=== PATIENT | female | born 1990 | race Caucasian/White ===

== ENCOUNTER 2017-10-03 19:46 | Emergency (ER) | payer MEDICAID ==
[2017-10-03 20:45] VITALS: BP 120/84
[2017-10-03] MEDS ORDERED: Ketorolac 60 MG/2 ML SDV IM ONE (20:56)
--- NOTE | 2017-10-03 21:10 | EDM.PDOC ---
ED HPI GENERAL MEDICAL PROBLEM - General Chief Complaint: Lower Extremity Injury/Pain Stated Complaint: LEFT ANKLE INJURY Time Seen by Provider: 10/03/17 20:40 Source of Information: Reports: Patient, Family (Cousin here with Екатерина) History Limitations: Reports: No Limitations - History of Present Illness INITIAL COMMENTS - FREE TEXT/NARRATIVE: Left ankle pain; this is a 27-year-old female presents emergency room with her cousin, they were playing a softball game this evening and at 6:30 PM she was running to first base stepped off the base and rolled her ankle. Unable to bear weight had to be carried off the field she rested but continues to have acute pain with any weightbearing. She is also tender to the lateral ankle. Denies Onset: Today Onset Date: 10/03/17 Onset Time: 18:30 Duration: Hour(s):, Constant Location: Reports: Lower Extremity, Left (Left ankle) Quality: Reports: Pressure, Sharp Severity: Moderate Improves with: Reports: Immobilization Worsens with: Reports: Movement Context: Reports: Other (Sports injury) Associated Symptoms: Reports: No Other Symptoms - Related Data Allergies Allergy/AdvReac Type Severity Reaction Status Date / Time No Known Allergies Allergy Verified 10/03/17 20:28 Home Meds: Home Meds Citalopram Hydrobromide [Celexa] 10/03/17 [History] Norgestimate-Ethinyl Estradiol [Ortho Tri-Cyclen 28 Tablet] 10/03/17 [History] Past Medical History - Past Health History Medical/Surgical History: Denies Medical/Surgical History Social & Family History - Tobacco Use Smoking Status *Q: Never Smoker - Living Situation & Occupation Occupation: Employed (Employed as a [employer], and [employer]. Lives with her 2 children.) Review of Systems - Review of Systems Review Of Systems: See Below Constitutional: Reports: Other (Painful left ankle) Musculoskeletal: Reports: Leg Pain (Left ankle), Joint Pain (Left ankle) Skin: Reports: No Symptoms Neurological: Reports: No Symptoms Psychiatric: Reports: No Symptoms ED EXAM, GENERAL - Physical Exam Exam: See Below Exam Limited By: No Limitations General Appearance: Alert, WD/WN, Mild Distress, Obese Eye Exam: Bilateral Eye: Normal Inspection Ears: Normal External Exam Nose: Normal Inspection Throat/Mouth: Normal Inspection Head: Atraumatic, Normocephalic Neck: Normal Inspection, Supple Respiratory/Chest: No Respiratory Distress Cardiovascular: Regular Rate, Rhythm Extremities: Leg Pain (Left left ankle with point tenderness to the lateral malleolus and heel. Patient is unable to bear weight on the left leg.) Neurological: Alert, Oriented, Normal Cognition Psychiatric: Normal Affect, Normal Mood, Tearful Skin Exam: Warm, Dry, Intact, Normal Color, No Rash Lymphatic: No Adenopathy Course - Vital Signs Last Recorded V/S: Last Vital Signs Temp 36.9 C 10/03/17 20:35 Pulse 80 10/03/17 20:35 Resp 14 10/03/17 20:35 BP 120/84 10/03/17 20:35 Pulse Ox 96 10/03/17 20:35 - Orders/Labs/Meds Orders: Active Orders 24 hr Category Date Time Status Ankle Min 3V Lt [CR] Stat Exams 10/03/17 20:40 Ordered DME for Discharge [COMM] Urgent Oth 10/03/17 20:59 Ordered Meds: Medications Discontinued Medications Generic Name Dose Route Start Last Admin Trade Name Lina PRN Reason Stop Dose Admin Ketorolac Tromethamine 60 mg 10/03/17 20:56 Toradol IM 10/03/17 20:57 ONETIME ONE - Radiology Interpretation Free Text/Narrative:: Left ankle x-ray is suspicious for a hairline fracture to the distal fibula. No other acute bony injury is noted. Will await radiology report. Given Toradol 60 mg IM for pain control, will plan to discharge to home with crutches, walking boot, and medications for pain control. Екатерина and her cousin agree with plan of care. Departure - Departure Time of Disposition: 21:10 Disposition: Home, Self-Care 01 Condition: Good Clinical Impression: Fracture of fibula - Discharge Information Instructions: Cast or Splint Care, Adult, [id number], Crutch Use, Adult, Easy -to-Read, Fibular Ankle Fracture Treated With or Without Immobilization, Adult Referrals: Swetha Devine CNM [Primary Care Provider] - Care Plan Goals: Left ankle sprain. Distal fibula fracture versus sprain -Rest, [id number] -Use crutches until cleared by primary care or orthopedics -walking boot for comfort and until cleared by primary care orthopedics -Percocet 5/325 one every 4-6 hours when necessary pain #10 -May use [id number] Motrin/ibuprofen 600 mg every 6-8 hours when necessary pain -Advised to call ER tomorrow for radiology report -If positive for fracture will need to follow-up with orthopedics -If negative for fracture will need to follow-up with primary care in 5-7 days Return to emergency room for increased pain, fever, chills, nausea, vomiting, rash or not improved - Problem List & Annotations (1) Fracture of fibula SNOMED Code(s): 70118822 Code(s): S82.409A - UNSP FRACTURE OF SHAFT OF UNSP FIBULA, INIT FOR CLOS FX Status: Acute Priority: High Current Visit: Yes (2) Left ankle sprain SNOMED Code(s): 50646555, 65911782955207789 Code(s): S93.402A - SPRAIN OF UNSPECIFIED LIGAMENT OF LEFT ANKLE, INIT ENCNTR Status: Acute Current Visit: Yes Qualifiers: Encounter type: initial encounter - Problem List Review Problem List Initiated/Reviewed/Updated: Yes - My Orders Last 24 Hours: My Active Orders 10/03/17 20:40 Ankle Min 3V Lt [CR] Stat 10/03/17 20:59 DME for Discharge [COMM] Urgent - Assessment/Plan Last 24 Hours: My Active Orders 10/03/17 20:40 Ankle Min 3V Lt [CR] Stat 10/03/17 20:59 DME for Discharge [COMM] Urgent Plan: Left ankle sprain. Distal fibula fracture versus sprain -Rest, [id number] -Use crutches until cleared by primary care or orthopedics -walking boot for comfort and until cleared by primary care orthopedics -Percocet 5/325 one every 4-6 hours when necessary pain #10 -May use [id number] Motrin/ibuprofen 600 mg every 6-8 hours when necessary pain -Advised to call ER tomorrow for radiology report -If positive for fracture will need to follow-up with orthopedics -If negative for fracture will need to follow-up with primary care in 5-7 days Return to emergency room for increased pain, fever, chills, nausea, vomiting, rash or not improved
--- NOTE | 2017-10-04 08:59 | CR ---
Ankle Min 3V Lt CLINICAL HISTORY: Pain, twisted FINDINGS: The soft tissues are normal. There is a transverse linear lucency across the tip of the fib troy. Ankle mortise is symmetric. Articular surfaces are smooth Impression: Transverse lucency across the tip of the fibula. A nondisplaced fracture is not excluded. This should be correlated with exam for point tenderness.
== END 2017-10-03 21:47 | disposition home or self-care (01) ==
LOC: JP.ED 19:46
DX: S82.832A Other fracture of upper and lower end of left fibula, initial encounter for closed fracture (principal); X50.0XXA Overexertion from strenuous movement or load, initial encounter; Z79.899 Other long term (current) drug therapy; Y93.64 Activity, baseball
CPT/HCPCS: 73610; 96372; 99284; J1885

== ENCOUNTER 2018-06-07 16:20 | Emergency (ER) | payer MEDICAID ==
[2018-06-07 16:38] VITALS: BP 148/83
--- NOTE | 2018-06-07 17:02 | EDM.PDOC ---
ED HPI GENERAL MEDICAL PROBLEM - General Chief Complaint: Genitourinary Problem Stated Complaint: POSSIBLE KIDNEY INFECTION Time Seen by Provider: 06/07/18 16:40 Source of Information: Reports: Patient, Old Records History Limitations: Reports: No Limitations - History of Present Illness INITIAL COMMENTS - FREE TEXT/NARRATIVE: 28 yo female presents with a concern that she may have a UTI. Has no dysuria. Says she had a fever at home, but didn't take anything for it and now is afebrile. Sx's have been present for a week, but has not been to the clinic. Reports bilateral flank pain as well. Some nausea without vomiting. Family members have concurrent URI sx's. Appetite is diminished. Onset: Gradual Onset Date: 05/31/18 Duration: Week(s): (1), Waxing/Waning Location: Reports: Abdomen, Back (flanks) Quality: Reports: Ache Severity: Mild Improves with: Reports: None Worsens with: Reports: None Context: Reports: Other (See HPI) Associated Symptoms: Reports: Fever/Chills (at home only), Loss of Appetite, Nausea/Vomiting (no vomiting). 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 (see below) (none) Right Flank Pain Score (Numeric/FACES): 7 - Related Data Allergies Allergy/AdvReac Type Severity Reaction Status Date / Time No Known Allergies Allergy Verified 06/07/18 16:40 Home Meds: Home Meds Citalopram Hydrobromide [Celexa] 10 mg PO BEDTIME 10/03/17 [History] Norgestimate-Ethinyl Estradiol [Ortho Tri-Cyclen 28 Tablet] 10/03/17 [History] Past Medical History - Past Health History Medical/Surgical History: Denies Medical/Surgical History HEENT History: Reports: 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 Denies: Anorexia, Black Stool, Constipation, Diarrhea, Distension, Hematemesis, Hematochezia, Melena, Vomiting : Reports: Flank Pain. Denies: Dysuria, Frequency, Hematuria, Incontinence, Urgency, Urinary Retention Musculoskeletal: Reports: No Symptoms Skin: Reports: No Symptoms Neurological: Reports: No Symptoms Psychiatric: Reports: No Symptoms ED EXAM, GI/ABD - Physical Exam Exam: See Below Exam Limited By: No Limitations General Appearance: Alert, WD/WN, No Apparent Distress, Obese Eyes: Bilateral: Normal Appearance, EOMI Ears: Normal External Exam, Normal Canal, Hearing Grossly Normal, Normal TMs Nose: Normal Inspection, No Blood Throat/Mouth: Normal Inspection, Normal Lips, Normal Oropharynx, Normal Voice, No Airway Compromise Head: Atraumatic, Normocephalic Neck: Normal Inspection Respiratory/Chest: No Respiratory Distress, Lungs Clear, Normal Breath Sounds, No Accessory Muscle Use Cardiovascular: Regular Rate, Rhythm, No Edema GI/Abdominal Exam: Normal Bowel Sounds, Soft, No Distention, Tender (mild, diffuse, ? worse on left side). No: Non-Tender, Distended, Guarding, Rigid, Rebound Back Exam: Normal Inspection, CVA Tenderness (R), CVA Tenderness (L) (R greater than L) Extremities: Normal Inspection, Normal Range of Motion, Non-Tender, No Pedal Edema Neurological: Alert, Oriented, CN II-XII Intact, Normal Cognition, No Motor/ Sensory Deficits Psychiatric: Normal Affect, Normal Mood Skin Exam: Warm, Dry, Intact, Normal Color, No Rash Course - Vital Signs Last Recorded V/S: Last Vital Signs Temp 36.8 C 06/07/18 16:39 Pulse 98 06/07/18 16:39 Resp 16 06/07/18 16:39 BP 148/83 H 06/07/18 16:39 Pulse Ox 98 06/07/18 16:39 - Orders/Labs/Meds Labs: Laboratory Tests 06/07/18 06/07/18 Range/Units 16:41 17:03 WBC 7.5 (4.5-11.0) K/uL RBC 4.66 (3.30-5.50) M/uL Hgb 13.2 (12.0-15.0) g/dL Hct 42.0 (36.0-48.0) % MCV 90 (80-98) fL MCH 28 (27-31) pg MCHC 31 L (32-36) % Plt Count 218 (150-400) K/uL Urine Color Yellow Urine Appearance Slightly cloudy Urine pH 5.0 (4.5-8.0) Ur Specific [place] 1.020 (1.008-1.030) Urine Protein Negative (NEGATIVE) mg/dL Urine Glucose (UA) Normal (NEGATIVE) mg/dL Urine Ketones Negative (NEGATIVE) mg/dL Urine Occult Blood Negative (NEGATIVE) Urine Nitrite Negative (NEGATIVE) Urine Bilirubin Negative (NEGATIVE) Urine Urobilinogen Normal (NORMAL) mg/dL Ur Leukocyte Esterase Small (NEGATIVE) Urine RBC Not seen (0-5) Urine WBC 0-5 (0-5) Ur Epithelial Cells Moderate Amorphous Sediment Not seen Urine Bacteria Many Urine Mucus Numerous Departure - Departure Time of Disposition: 17:26 Disposition: Home, Self-Care 01 Condition: Good Clinical Impression: Viral illness - Discharge Information *PRESCRIPTION DRUG MONITORING PROGRAM REVIEWED*: No *COPY OF PRESCRIPTION DRUG MONITORING REPORT IN PATIENT WENDY: No Instructions: Viral Illness, Adult Referrals: Swetha Devine CNM [Primary Care Provider] - Forms: ED Department Discharge Additional Instructions: Acetaminophen 1000 mg every 6 hrs as needed for pain/fever control. Eat/drink items easily digested. Follow up with your doctor as needed.
== END 2018-06-07 17:37 | disposition home or self-care (01) ==
LOC: JP.ED 16:20
DX: B34.9 Viral infection, unspecified (principal)
CPT/HCPCS: 36415; 81001; 85027; 99283

== ENCOUNTER 2018-09-14 14:53 | Emergency (ER) | payer MEDICAID ==
[2018-09-14 15:12] VITALS: BP 126/73
--- NOTE | 2018-09-14 15:53 | EDM.PDOC ---
ED HPI GENERAL MEDICAL PROBLEM - General Chief Complaint: Lower Extremity Injury/Pain Stated Complaint: POSSIBLE BLOOD CLOT ON RT LEG Time Seen by Provider: 09/14/18 15:46 Source of Information: Reports: Patient History Limitations: Reports: No Limitations - History of Present Illness INITIAL COMMENTS - FREE TEXT/NARRATIVE: Alert 28-year-old female presents to ER with friend for evaluation. Patient states she has a history of DVTs after delivery of her child 4 years ago. Patient is a nonsmoker she does use control shows a history of migraine headaches and is on once monthly injection she is on her third month of injections for migraine headaches. Patient states the right leg discomfort started yesterday. Patient's did some warm compresses obstruction with minimal improvement. Patient's concern regarding recurrent DVT as she has had one previously. Patient's not mention any family history of DVT. Patient denies any headache or neurologic symptoms. She denies any shortness of breath or chest pain. Patient denies any rashes or shortness or skin and she denies any known injuries to the right leg. 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 ED EXAM, GENERAL - Physical Exam Exam: See Below Exam Limited By: No Limitations General Appearance: Alert, WD/WN, Mild Distress Head: Atraumatic, Normocephalic Neck: Normal Inspection, Supple, Non-Tender, Full Range of Motion Respiratory/Chest: No Respiratory Distress, Lungs Clear, Normal Breath Sounds Cardiovascular: Normal Peripheral Pulses, Regular Rate, Rhythm Peripheral Pulses: 4+: Posterior Tibial (R), Dorsalis Pedis (R) GI/Abdominal: Normal Bowel Sounds, Soft, No Organomegaly (limited exam due to body habitus) Extremities: Normal Inspection, Ceci's Sign, Leg Pain (pain to squeezing right calf and posterior thigh (hamstring). Skin intact without signs of erythema, swelling or infection.) Course - Vital Signs Last Recorded V/S: Last Vital Signs Temp 35.7 C 09/14/18 15:18 Pulse 94 09/14/18 15:18 Resp 16 09/14/18 15:18 BP 126/73 09/14/18 15:18 Pulse Ox 96 09/14/18 15:18 - Re-Assessments/Exams Free Text/Narrative Re-Assessment/Exam: US Right Leg Duplex Ordered. 09/14/18 15:49 Ultrasound completed. No obvious vascular thrombus noted. Radiology report pending. 09/14/18 17:00 Departure - Departure Time of Disposition: 18:18 Disposition: Home, Self-Care 01 Clinical Impression: DVT (deep venous thrombosis), Strain of muscle of posterior right lower leg, Strain of right hamstring muscle, Hamstring sprain, Strain of calf muscle - Discharge Information Instructions: Hamstring Strain, Muscle Strain Referrals: Swetha Devine CNM [Primary Care Provider] - 1 Week (repeat evaluation and US if symptoms continue or not improving ) Forms: ED Department Discharge Additional Instructions: 1. Warm compress to painful hamstring and calf muscles. 2. Ibuprofen 600-800mg every 6-8 hrs with food for inflammation pain and swelling. 3. Follow information given. 4. Repeat evaluation in clinic in 1 weeks if symptoms not improving. 5. Return to ER if significant worsening symptoms shortness of breath or new/ acute onset headache. - Assessment/Plan Plan: 1. Warm compress to painful hamstring and calf muscles. 2. Ibuprofen 600-800mg every 6-8 hrs with food for inflammation pain and swelling. 3. Follow information given. 4. Repeat evaluation in clinic in 1 weeks if symptoms not improving. 5. Return to ER if significant worsening symptoms shortness of breath or new/ acute onset headache.
--- NOTE | 2018-09-14 17:47 | CRLUS ---
INDICATION: Right leg pain and swelling TECHNIQUE: Ultrasound venous duplex lower right extremity. Compression venous exam was performed using sanders-scale, color Doppler, and spectral Doppler imaging. COMPARISON: None available FINDINGS: Sonographic imaging demonstrates the right common femoral, deep femoral, superficial femoral, popliteal, posterior tibial and greater saphenous and the contralateral left common femoral veins to be fully compressible with normal color Doppler blood flow. IMPRESSION: Normal right lower extremity venous ultrasound, no sign of deep venous thrombosis. Dictated by Michaela Aleman MD @ 09/14/2018 5:45:38 PM Dictated by: Michaela Aleman MD @ 09/14/2018 17:45:49 (Electronically Signed)
== END 2018-09-14 18:26 | disposition home or self-care (01) ==
LOC: JP.ED 14:53
DX: S76.311A Strain of muscle, fascia and tendon of the posterior muscle group at thigh level, right thigh, initial encounter (principal); S86.911A Strain of unspecified muscle(s) and tendon(s) at lower leg level, right leg, initial encounter; I82.401 Acute embolism and thrombosis of unspecified deep veins of right lower extremity; Z79.899 Other long term (current) drug therapy; X58.XXXA Exposure to other specified factors, initial encounter
CPT/HCPCS: 93971-RT; 99283-25

== ENCOUNTER 2018-10-16 21:07 | Emergency (ER) | payer MEDICAID ==
[2018-10-16 23:08] VITALS: BP 122/77; PULSE 86
[2018-10-16] MEDS ORDERED: Acetaminophen/oxyCODONE 325-5 MG Tab PO ONE (23:17)
--- NOTE | 2018-10-16 23:20 | EDM.PDOC ---
ED HPI GENERAL MEDICAL PROBLEM - General Chief Complaint: Lower Extremity Injury/Pain Stated Complaint: LEFT ANKLE PAIN Time Seen by Provider: 10/16/18 23:18 Source of Information: Reports: Patient History Limitations: Reports: No Limitations - History of Present Illness INITIAL COMMENTS - FREE TEXT/NARRATIVE: pt arrived with a swollen left ankle. She had a fracture last year. She was wearing a ankle brace. She slide into base and developed acute pain in the ankle. Onset: Today, Sudden Duration: Hour(s): Location: Reports: Lower Extremity, Left Associated Symptoms: Reports: No Other Symptoms left ankle Pain Score (Numeric/FACES): 8 - Related Data Allergies Allergy/AdvReac Type Severity Reaction Status Date / Time No Known Allergies Allergy Verified 10/16/18 23:42 Home Meds: Home Meds Citalopram Hydrobromide [Celexa] 10 mg PO BEDTIME 10/03/17 [History] Norgestimate-Ethinyl Estradiol [Ortho Tri-Cyclen 28 Tablet] 1 tab PO DAILY 10/03 [History] Erenumab-Aooe [Aimovig Autoinjector] 70 mg SUBCUT ASDIRECTED 09/14/18 [History] Past Medical History - Past Health History Medical/Surgical History: Denies Medical/Surgical History HEENT History: Reports: Sinusitis 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 ) ED EXAM, GENERAL - Physical Exam Exam: See Below Free Text/Narrative:: pt arrived with pain in left ankle. She slide into base and developed acute pain. She did have a fractue last year. Exam Limited By: No Limitations General Appearance: Alert, Anxious, Moderate Distress Ears: Normal TMs Nose: Normal Inspection Throat/Mouth: Normal Inspection Head: Atraumatic Neck: Normal Inspection Extremities: Other (pt had a ankle brace that she was wearing. this was rwemoved and she had swelling on the lateral side of the ankle This was very tender. ) Neurological: Alert, Oriented, Normal Cognition Course - Vital Signs Last Recorded V/S: Last Vital Signs Temp Pulse 86 10/16/18 23:46 Resp 16 10/16/18 23:46 BP 122/77 10/16/18 23:46 Pulse Ox 99 10/16/18 23:46 - Orders/Labs/Meds Meds: Medications Discontinued Medications Generic Name Dose Route Start Last Admin Trade Name Freq PRN Reason Stop Dose Admin Oxycodone/Acetaminophen 1 tab 10/16/18 23:17 10/16/18 23:45 Percocet 325-5 Mg PO 10/16/18 23:18 1 tab ONETIME ONE Administration - Re-Assessments/Exams Free Text/Narrative Re-Assessment/Exam: 10/17/18 00:07 xray revealed no fracture. Departure - Departure Time of Disposition: 00:02 Disposition: Home, Self-Care 01 Condition: Fair Clinical Impression: Left ankle sprain - Discharge Information Referrals: Swetha Devine CNM [Primary Care Provider] - Forms: ED Department Discharge Care Plan Goals: ice pack, elevate, stirup splint, crutches, no work for the next 2-3 days then reevaluate. Motrin 600mg q6h prn for pain.
--- NOTE | 2018-10-16 23:58 | CRLCR ---
INDICATION: Pain left ankle TECHNIQUE: Ankle radiograph 3 views left COMPARISON: None FINDINGS: Bone: A small corticated ossicle is seen adjacent to the lateral malleolus. No acute osseous injuries noted. Joint: The ankle mortise joint and the visualized hindfoot joints are unremarkable in appearance. No significant ankle effusion is seen. Soft tissue: Mild lateral soft tissue swelling is seen. No radiopaque foreign bodies are seen. IMPRESSION: 1. No acute osseous injuries or abnormalities are noted. Dictated by Bryan Villalobos MD @ 10/16/2018 11:55:52 PM Dictated by: Bryan Villalobos MD @ 10/16/2018 23:56:05 (Electronically Signed)
== END 2018-10-17 00:35 | disposition home or self-care (01) ==
LOC: JP.ED 21:07
DX: S93.402A Sprain of unspecified ligament of left ankle, initial encounter (principal); F41.9 Anxiety disorder, unspecified; Z79.899 Other long term (current) drug therapy; X50.9XXA Other and unspecified overexertion or strenuous movements or postures, initial encounter
CPT/HCPCS: 73610; 99283; A9270

== ENCOUNTER 2019-09-12 13:50 | Emergency (ER) | payer BC, MEDICAID ==
[2019-09-12 14:17] VITALS: BP 125/75; PULSE 98
--- NOTE | 2019-09-12 14:34 | EDM.PDOC ---
ED HPI GENERAL MEDICAL PROBLEM - General Chief Complaint: Skin Complaint Stated Complaint: POISON CHRISTINE Time Seen by Provider: 09/12/19 13:59 Source of Information: Reports: Patient History Limitations: Reports: No Limitations - History of Present Illness INITIAL COMMENTS - FREE TEXT/NARRATIVE: 29 yo female presents with blistered itching paul. feels she came into contact with poison christine 3 days ago she did wash with dish soap after contact. blisters present this AM. generally healthy - Related Data Allergies Allergy/AdvReac Type Severity Reaction Status Date / Time No Known Allergies Allergy Verified 10/16/18 23:42 Home Meds: Home Meds Citalopram Hydrobromide [Celexa] 10 mg PO BEDTIME 10/03/17 [History] Norgestimate-Ethinyl Estradiol [Ortho Tri-Cyclen 28 Tablet] 1 tab PO DAILY 10/03 [History] Erenumab-Aooe [Aimovig Autoinjector] 70 mg SUBCUT ASDIRECTED 09/14/18 [History] Past Medical History - Past Health History Medical/Surgical History: Denies Medical/Surgical History HEENT History: Reports: Sinusitis [employer] History: Reports: Musculoskeletal History: Reports: Fracture Other Musculoskeletal History: ankle. 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 Lives with her 2 children.) ED ROS GENERAL - Review of Systems Review Of Systems: See Below Constitutional: Denies: Fever, Chills, Fatigue Respiratory: Denies: Shortness of Breath Cardiovascular: Denies: Chest Pain ED EXAM, SKIN/RASH Exam: See Below General Appearance: Alert Respiratory/Chest: No Respiratory Distress Skin: Warm, Dry, Intact, Rash (left face linear blisters, mild linerar erythema bilater lower arms and nickel size area ABD) Course - Vital Signs Last Recorded V/S: Last Vital Signs Temp 36.2 C 09/12/19 14:16 Pulse 98 09/12/19 14:16 Resp 15 09/12/19 14:16 BP 125/75 09/12/19 14:16 Pulse Ox 98 09/12/19 14:16 Departure - Departure Time of Disposition: 14:34 Disposition: Home, Self-Care 01 Condition: Good Clinical Impression: Poison christine dermatitis - Discharge Information *PRESCRIPTION DRUG MONITORING PROGRAM REVIEWED*: No *COPY OF PRESCRIPTION DRUG MONITORING REPORT IN PATIENT WENDY: No Instructions: Poison Christine Dermatitis Referrals: Swetha Devine CNM [Primary Care Provider] - Additional Instructions: prednisone taper 60 mg for 3 days 40 mg for 4 days 20 mg for 3 days 10 mg for 4 days Sepsis Event Note - Evaluation Sepsis Screening Result: No Definite Risk - Focused Exam Vital Signs: Vital Signs Temp Pulse Resp BP Pulse Ox 09/12/19 14:16 36.2 C 98 15 125/75 98 Date Exam was Performed: 09/12/19 Time Exam was Performed: 14:29
== END 2019-09-12 14:56 | disposition home or self-care (01) ==
LOC: JP.ED 13:50
DX: L23.7 Allergic contact dermatitis due to plants, except food (principal); F41.9 Anxiety disorder, unspecified; Z79.899 Other long term (current) drug therapy
CPT/HCPCS: 99283